=== PATIENT | male | born 1960 | race Caucasian/White ===

== ENCOUNTER 2017-03-16 11:33 | Emergency (ER) | payer BC ==
[2017-03-16 11:55] VITALS: BP 143/90; PULSE 97; BMI 30.7
[2017-03-16] MEDS ORDERED: DIPHTH,PERTUSS(ACELL),TET 0.5 ML DISP.SYRIN IM ONE (12:52)
--- NOTE | 2017-03-16 13:06 | PDOC ---
History of Present Illness - General Chief Complaint: Wound Infection Stated Complaint: RT HEEL INJURY Time Seen by Provider: 03/16/17 12:39 History Source: Patient Exam Limitations: No Limitations - History of Present Illness Initial Comments: 03/16/17 13:03 56 yr male with ulcerated right heel and great toe after stepping on a nail 2 weeks ago. Pt did not seek medical care at that time. Pt sent to ER by his gymnastics coach or instructor. Pt states he needs a tetanus injection. Pt has history of HTN denies fever or chills. Timing/Duration: reports: week (2-3 weeks ) Severity: Yes: moderate Location: reports: feet Past History - Past Medical History Allergies/Adverse Reactions: Allergies Allergy/AdvReac Type Severity Reaction Status Date / Time No Known Allergies Allergy Verified 03/16/17 11:47 Home Medications: Ambulatory Orders Amlodipine/Atorvastatin [Amlodipine-Atorvast 10-10 mg] 10 mg PO ASDIR 03/16/17 Ciprofloxacin [Cipro (Restricted To Id)] 500 mg PO Q12H #14 tablet 03/16/17 HTN: Yes - Immunization History Immunization Up to Date: Yes - Suicide/Smoking/Psychosocial Hx Smoking History: Former smoker Have you smoked in the past 12 months: No If you are a former smoker, when did you quit?: 27 yrs ago Information on smoking cessation initiated: No Hx Alcohol Use: No Drug/Substance Use Hx: No Review of Systems - Review of Systems Able to Perform ROS?: Yes Is the patient limited Mohawk proficient: No Constitutional: No: Symptoms Reported HEENTM: No: Symptoms Reported Respiratory: No: Symptoms reported Cardiac (ROS): No: Symptoms Reported ABD/GI: No: Symptoms Reported : No: Symptoms Reported Musculoskeletal: No: Symptoms Reported Integumentary: Yes: Symptoms Reported *Physical Exam - Vital Signs Last Vital Signs Temp Pulse Resp BP Pulse Ox 97.5 F L 97 H 20 143/90 99 03/16/17 11:44 03/16/17 11:44 03/16/17 11:44 03/16/17 11:44 03/16/17 11:44 - Physical Exam General Appearance: Yes: Nourished, Appropriately Dressed HEENT: positive: EOMI, ED, Normal Voice, TMs Normal, Pharynx Normal Neck: positive: Supple Respiratory/Chest: positive: Lungs Clear, Normal Breath Sounds Cardiovascular: positive: Regular Rhythm, Regular Rate Musculoskeletal: positive: Normal Inspection Extremity: positive: Normal Capillary Refill, Normal Range of Motion Integumentary: positive: Other (right foot with swelling bottom of heel with 3cm linear ulcerated area, great toe with 2 cm ulcerated area nv intact no streaking or redness up the leg,) Neurologic: positive: Fully Oriented, Alert, Normal Mood/Affect, Normal Response , Motor Strength 09/23 ED Treatment Course - LABORATORY CBC & Chemistry Diagram: 03/16/17 13:35 03/16/17 13:35 - Consult/PCP Time Called: 13:16 Case discussed with personal care physician: Denilson Phillips Medical Decision Making - Medical Decision Making 03/16/17 13:07 cc: stepped on nail to bottom of foot 3 weeks ago now with swelling and painful ulcer to bottom of foot as well as the great toe denies fever or chills sent to ER by his gymnastics coach or instructor will give tetanus draw blood, xray and surgical consult pt is non toxic able to ambulate with limp PMD ([facility] admits) 03/16/17 15:22 pt has prescriptions at [facility] for silvadene cream will prescribe cipro for 7 days strict follow up with podistrist pt states he will see him Monday as planned pt given verbal dc inst and understands to return to ER if any worsening symptoms 03/16/17 16:32 03/16/17 18:39 *DC/Admit/Observation/Transfer Diagnosis at time of Disposition: Puncture wound Cellulitis Qualifiers: Site of cellulitis: extremity Site of cellulitis of extremity: lower extremity Laterality: right Qualified Code(s): L03.115 - Cellulitis of right lower limb - Discharge Dispostion Disposition: HOME Condition at time of disposition: Good - Prescriptions Prescriptions: Ciprofloxacin [Cipro (Restricted To Id)] 500 mg PO Q12H #14 tablet - Referrals Referrals: Jose Manuel Qiu [Primary Care Provider] - - Patient Instructions Printed Discharge Instructions: DI for Wound Infection Additional Instructions: please follow with your gymnastics coach or instructor Monday for follow up take the medications as prescribed Return to ER for any worsening symptoms, fever chills, redness streaking up your foot ankle or any concerns come back
[2017-03-16] MEDS ORDERED: CEFTRIAXONE 1 GM in DEXTROSE 5%-WATER - 50 ML IVPB STA (13:19)
[2017-03-16] MEDS ORDERED: CEFTRIAXONE 50 ML ONE (13:34)
[2017-03-16 13:43] LABS: BASOPHIL 2.5 % (0-2.0); EOSINOPHIL 4.8 % (0-4.5); MCHC 33.5 g/dl (32.0-35.9); MEAN CELL VOLUME 92.5 fl (80-96); MEAN PLT VOLUME 7.5 fl (7.5-11.1); PLATELET COUNT 278 K/MM3 (134-434); RDW 13.7 % (11.9-15.9); WHITE BLOOD COUNT 7.3 K/mm3 (4.0-10.0)
[2017-03-16 14:07] LABS: ALK PHOS 133 U/L (45-117); ANION GAP 11 (8-16); BILIRUBIN,TOTAL 0.3 mg/dL (0.2-1.0); CALCIUM 8.2 mg/dL (8.5-10.1); CO2 28 mmol/L (21-32); CREATININE 0.4 mg/dL (0.7-1.3); GLUCOSE,RANDOM 89 mg/dL (74-106); SGPT/ALT 34 U/L (12-78); TOT PROT 8.7 g/dl (6.4-8.2)
[2017-03-16 14:08] LABS: SGOT/AST 36 U/L (15-37)
[2017-03-16 15:19] VITALS: TEMP 98.1
--- NOTE | 2017-03-17 08:45 | PDOC ---
Patient Follow-up (Call Back) - Post ED Follow - Up Condition at time of discharge: Good Disposition at time of original discharge: HOME Reason for Call Back: Abnwl. Microbiology (Patient's Gram stain shows many gram positive cocci in pairs. Patient was prescribed Cipro. Wound culture pending.)
--- NOTE | 2017-03-18 07:15 | PDOC ---
Patient Follow-up (Call Back) - Post ED Follow - Up Condition at time of discharge: Good Disposition at time of original discharge: HOME Reason for Call Back: Abnwl. Microbiology (Wound culture preliminary report positive for presumptive MRSA. patient currently on Cipro which will not cover MRSA but will continue (pt stepped on nail with shoes on). patient will be ordered for clindamycin. rx sent to [facility]. will pick it up today)
== END 2017-03-16 16:35 | disposition home or self-care (01) ==
LOC: JERFT 11:33
PROC: 3E0234Z Introduction of Serum, Toxoid and Vaccine into Muscle, Percutaneous Approach (ICD-10-PCS; principal; 2017-03-16)
PROC: 3E03329 Introduction of Other Anti-infective into Peripheral Vein, Percutaneous Approach (ICD-10-PCS; 2017-03-16)
DX: S91.331A Puncture wound without foreign body, right foot, initial encounter (principal); S91.131A Puncture wound without foreign body of right great toe without damage to nail, initial encounter; L03.115 Cellulitis of right lower limb; L03.031 Cellulitis of right toe; W45.0XXA Nail entering through skin, initial encounter; Y93.89 Activity, other specified; Y92.89 Other specified places as the place of occurrence of the external cause; Y99.8 Other external cause status
CPT/HCPCS: 36415; 73610-TC-RT; 73630-TC-RT; 80053; 83605; 85025; 86850; 86900; 86901; 87040; 87070; 87186; 87205; 90715; 99282-25